=== PATIENT | female | born 1935 | race Caucasian/White ===

== ENCOUNTER → 2018-02-11 | Outpatient (CLI) | payer OTHER, MEDICARE ==
[~2018-02-11] VITALS: Ht 154.9 cm; Wt 65.8 kg
[~2018-02-11] MED LIST: ALLOPURINOL 10100 M1 PO; ARANESP10 MCG/0.4 IJ; COZAAR 50 MG TA50 M2 PO; CYMBALTA30 MG PO; FOSAMAX 70 MG T70 MG PO; GABAPENTIN 100100 MG PO; GLUCOSAMINE-CH1 EA36 PO; HYDROCODON-ACE1 EAC7 PO; LISINOPRIL-HCT1 EACH PO; MAGOX 400400 MG PO; METFORMIN HCL500 MG PO; OCUVITE TABLET1 EAC1 PO; PERCOCET 5-3251 EACH PO; SLOW FE 160MG160 MG PO; TRAMADOL 50 MG50 MG PO; VITAMIN B-121000 MC1 PO; VITAMIN D5000 UNIT PO
--- NOTE | ~2018-02-11 | HPC ---
[facility] [place] [address] PAIN MANAGEMENT CONSULTATION Name: YAA WATKINS Theo Room #: REG FILIPE Amandeep.#: [id number] Admission: 02/11/18 Attend Phys: Larry Borjas DO Discharge: Date of : 37 Report #: [id number] THIS REPORT FOR: //name// CC: HALEY Borjas Physician staff Lev Corado MD DATE OF SERVICE: 02/11/2018 REFERRING PHYSICIAN: Haley Amado MD CHIEF COMPLAINT: Low back pain, left lower extremity pain and paresthesias. HISTORY OF PRESENT ILLNESS: As you know, the patient is an 82-year-old female who has been followed by [facility] for some time for lumbar radicular symptoms. The patient was last seen in our clinic on 09/21/2015 where she underwent an L4-L5 left paramedian epidural steroid injection under fluoroscopic guidance with good efficacy. She returns today stating pain is sharp and constant and places current pain score 5-6/10, states pain is exacerbated with walking stairs, sitting, improves with cold compresses and previous epidural injection. The patient reports 80-90% improvement in overall pain with previous injection. She returns requesting the next in the series of epidural injections in hopes of improving pain. She indicates no major changes in medical history since her last visit. ALLERGIES: ERYTHROMYCIN AND STATIN MEDICATIONS. CURRENT MEDICATIONS: Magnesium oxide, Aranesp, vitamin A, C, E and Lutein, cholecalciferol, losartan, hydrocodone and metformin. SOCIAL HISTORY: The patient denies tobacco, alcohol, IV or illicit drug use. She continues to work as a nurse. She is working, not receiving workmen's compensation, unaccompanied today. IMAGING: No new imaging available. PQRS: The patient has osteoarthritis of the low back, bilateral hips and knees. She has no history of rheumatoid arthritis. She is not a fall risk, has not had a fall in the last 3 months. She is not on blood thinners. She is treated for hypertension with medication management. She has not been on opioids for longer than 6 months. She is not an opioid abuse risk. Functional assessment tool indicates pain involvement 37/70 moderate. PHYSICAL EXAMINATION: [facility] [address] [place] [address] PAIN MANAGEMENT CONSULTATION Name: YAA WATKINS Room #: REG [facility]#: [id number] Admission: 02/11/18 Attend Phys: Larry Borjas DO Discharge: Date of : 37 Report #: [id number] VITAL SIGNS: Blood pressure 143/71, pulse 80, respiratory rate 20 and unlabored. The patient is 100% on room air. Height 5 feet 1 inch tall, weight 145 pounds, BMI calculated 27.4. GENERAL: Well-developed, well-nourished, well-hydrated 82-year-old female appearing her stated age placing current pain score at 5-6/10. HEENT: Normocephalic and atraumatic. Pupils are equal, round and reactive to light. Extraocular muscles are intact. Sclerae are nonicteric without injection. NEUROLOGIC: Cranial nerves 2 through 12 are grossly intact. Speech is fluent. The patient deemed a good historian. LUNGS: Clear, no wheeze, rhonchi or rales. CARDIOVASCULAR: Regular. No appreciable gallop, no rub. ABDOMEN: Soft, nontender, nondistended, normal active bowel sounds. EXTREMITIES: Show no clubbing, no cyanosis and no edema. MUSCULOSKELETAL: Lower extremity strength appears equal and symmetrical 5/5. She is intact to light touch from L1 through S2 dermatomes. Seated straight leg raising is negative. Supine straight leg raising is positive on the left. Rut's test negative. Modified Gaenslen's positive for axial low back pain. Ankle clonus is negative. Babinski is negative. ASSESSMENT: 1. Lumbar radiculopathy. 2. Displacement of lumbar intervertebral disk with radiculopathy. 3. Lumbosacral spondylosis with radiculopathy. 4. Lumbar degeneration. PLAN: 1. The patient has returned today in followup visit requesting to undergo epidural injection under fluoroscopic guidance. She has done very well with previous epidural injection with good and prolonged efficacy. The patient was last seen in clinic 09/21/2015 where she underwent epidural injection with Dr. Corado. Due to scheduling conflicts, the patient was unable to see Dr. Corado today. She was placed on my schedule to provide the requested epidural injection. I have advised the patient of the risks and benefits of this procedure. These risks include but are not necessarily limited to bleeding, bruising, infection, worsening pain, no relief of pain, also risk of temporary or permanent muscle weakness, temporary or permanent nerve damage, possible paralysis and . The patient states understood and wished to proceed. 2. No medication changes made at today's visit. The patient to continue current medical therapy as previously prescribed. 3. We will see the patient back in followup visit on an as needed basis for next in the series of epidural injections. PROCEDURE NOTE DESCRIPTION OF PROCEDURE: L4-L5 left paramedian epidural steroid injection [address] [address] PAIN MANAGEMENT CONSULTATION Name: YAA WATKINS Room #: REG FILIPE Lester#: [id number] Admission: 02/11/18 Attend Phys: Larry Borjas DO Discharge: Date of : 37 Report #: [id number] under fluoroscopic guidance. After obtaining written consent, the patient was taken back to fluoroscopy suite, placed in prone position with pillow under abdomen to decrease lumbar lordosis. Skin overlying lumbosacral area then prepped and draped in aseptic fashion. The L4-L5 vertebral interspace identified by AP fluoroscopy. Skin and subcutaneous tissue overlying target site of injection was anesthetized with 3 mL of 1% lidocaine. A 20-gauge 3-1/2 inch Tuohy needle advanced under fluoroscopic guidance towards the epidural space using left paramedian approach. Epidural space identified using loss of resistance to air technique. After negative aspiration for heme or cerebrospinal fluid, 1 mL of Omnipaque was injected. A lumbar epidurogram was confirmed using both AP and lateral fluoroscopy. After negative aspiration for heme or cerebrospinal fluid, 5 mL of solution containing 2 mL 40 mg per mL, 80 mg total triamcinolone, 3 mL lidocaine 1% injected slowly. Needle retracted nursing home, flushed with 1 mL of 1% lidocaine and removed. Sterile bandage placed over injection site. No new motor deficits present in the lower extremity following procedure. The patient tolerated the procedure well, carefully escorted to recovery room in stable condition. No apparent complication. After meeting discharge criteria, the patient discharged home. <ELECTRONICALLY SIGNED> By: Larry Borjas DO 02/12/18 0853 [id number] [id number] Larry Borjas DO /pascual
[2018-02-11 10:07] VITALS: BP 143/71
== END | disposition home or self-care (01) ==
LOC: PAIN 07:51
DX: M51.16 Intervertebral disc disorders with radiculopathy, lumbar region (principal); M47.27 Other spondylosis with radiculopathy, lumbosacral region; M19.90 Unspecified osteoarthritis, unspecified site; M16.0 Bilateral primary osteoarthritis of hip; M17.0 Bilateral primary osteoarthritis of knee; I10 Essential (primary) hypertension; Z88.8 Allergy status to other drugs, medicaments and biological substances; Z79.899 Other long term (current) drug therapy; Z79.84 Long term (current) use of oral hypoglycemic drugs

== ENCOUNTER → 2019-03-17 | Outpatient (CLI) | payer OTHER ==
[~2019-03-17] VITALS: Ht 154.9 cm; Wt 62.6 kg
[~2019-03-17] MED LIST changes: +OSTEO BI-FLEX1 EAC1 PO; +TYLENOL EXTRA500 MG PO
[2019-03-17 08:44] VITALS: BP 159/66
--- NOTE | 2019-03-17 09:02 | NUR ---
Pain Clinic Assessment: 1. History of Osteoarthritis: BACK NECK History of Rheumatoid Arthritis: Not Applicable 2. Height: 5 ft. 1 in. 154.9 cm. Weight: 138.0 lb. oz. 62.596 kg. Patient's BMI: 26.1 3. Vital Signs: BP: 159/66 Pulse: 75 Resp: 16 Temp: 02 Sat: 100 ECG Mon: 4. Pain Intensity: 4 5. Fall Risk: Dizziness: N Needs help standing or walking: N Fallen in the last 3 months: N Fall risk comments: 6. Patient on Blood Thinner: None 7. History of Hypertension: Y 8. Opioid Therapy greater than 6 weeks: N Opiate Contract Signed: 9. Risk Assessment Tool Provided: LOW RISK 0/3 10. Functional Assessment Tool: 11. Recreational Drug Use: Never Drug Type: Tobacco Use: Never Smoker Tobacco Type: Amount or Packs/day: How Many Years: Alcohol Use: No Frequency: Quant:
--- NOTE | 2019-03-18 08:14 | HPC ---
[facility] [address] [address] PAIN MANAGEMENT CONSULTATION Name: ROLANDYAA Theo Room #: REG FILIPE Trevon#: [id number] Admission: 03/17/19 Attend Phys: Larry Borjas DO Discharge: Date of : 37 Report #: [id number] THIS REPORT FOR: //name// CC: HALEY Borjas Physician staff DATE OF SERVICE: 03/17/2019 REFERRING PHYSICIAN: Haley Amado M.D. CHIEF COMPLAINT: Neck pain, right upper extremity pain with paresthesias. HISTORY OF PRESENT ILLNESS: As you know, the patient is an 84-year-old female who reports acute onset of neck pain and right upper extremity pain that began early 2018. She describes this pain as aching, numbness and tingling. Places current pain score 4/10. Positioning and turning her head exacerbates symptoms. Massage, heat and cold compresses tend to improve pain. She sought evaluation for ongoing pain issues and ultimately underwent an MRI of the cervical spine on 01/28/2019, which showed facet arthropathy at C3-C4 with no central canal or neuroforaminal stenosis. There was mild degenerative disk disease, moderate facet arthropathy on the right, moderate facet arthropathy on the left at C4-C5 level. No significant central canal stenosis. There is moderate left C5 neuroforaminal narrowing. At C5-C6, there is severe degenerative disk disease, mild facet arthropathy, worse on the left, mild broad-based disk bulge, moderate narrowing of the left lateral recess, severe left and mild right C6 neuroforaminal narrowing. C6-C7, mild degenerative changes, no central canal neuroforaminal stenosis. C7-T1 normal. These findings led to the patient being referred back to our clinic to discuss the possibility of undergoing a cervical epidural injection. She denies injury or trauma. ALLERGIES: ERYTHROMYCIN AND STATIN. CURRENT MEDICATIONS: Magnesium oxide, Aranesp, vitamin A, C and D, cholecalciferol, losartan, hydrocodone, metformin. SOCIAL HISTORY: The patient denies tobacco, IV or illicit drug use. She is working, not receiving workmen's compensation, unaccompanied today. IMAGING: No new imaging available. PQRS: The patient has osteoarthritic changes of the neck and lumbar spine. No rheumatoid arthritis. She is placing pain intensity at 4/10. She is not a fall risk, has not had a fall in the last 3 months. She is not on blood thinners. She is treated for hypertension. She is not on chronic [place] [address] PAIN MANAGEMENT CONSULTATION Name: YAA WATKINS Room #: REG CLLaura Lester#: [id number] Admission: 03/17/19 Attend Phys: Larry Borjas DO Discharge: Date of : 37 Report #: [id number] low opiate addiction potential. Pain impact score 6/70, indicating mild interference in daily activity secondary to pain. PHYSICAL EXAMINATION: VITAL SIGNS: Blood pressure 159/66, pulse 75, respiratory rate 16 and unlabored. The patient is 100% on room air. Height 5 feet 1 inch tall, weight 138 pounds, BMI calculated 26.1. GENERAL: Well-developed, well-nourished, well-hydrated 84-year-old female, appearing stated age, placing current pain score 4/10. HEENT: Normocephalic, atraumatic. Pupils equal, round, reactive to light. Extraocular muscles are intact. Sclerae nonicteric without injection. NEUROLOGIC: Cranial nerves 2-12 grossly intact. Speech is fluent. EXTREMITIES: Show no clubbing, no cyanosis, and no edema. MUSCULOSKELETAL: Upper extremity strength appears symmetrical, 5/5. Slight giveaway strength noted with biceps flexion on the left when compared to the right. This is due to shoulder pain. Muscle bulk and tone appears equal and symmetrical in the upper extremities. Spurling's test is equivocal. Cervical provocation testing is met with increasing pain. ASSESSMENT: 1. Cervical radiculopathy. 2. Displacement of cervical intervertebral disk with radiculopathy. 3. Cervical spondylosis with radiculopathy. 4. Intractable pain. PLAN: 1. The patient has been referred back to our service after a long time from our last visit, which was September 2015 where the patient underwent a lumbar epidural injection. She has been referred back to our service to discuss treatment options for suspected cervical radiculopathy. I have advised the patient to the findings of the cervical imaging. The patient is reporting some left involvement, but also some right involvement. It does appear that she has enough changes in the cervical spine and treatment for cervical radiculopathy could be considered. We discussed the findings of the MRI and how they correlate to the patient's symptoms at this juncture. After discussion of the findings, we then discussed treatment options, following was discussed. We discussed physical therapy, stretching exercise, core strengthening and traction techniques. We discussed medication management, adding neuropathic pain medication. We discussed cervical epidural injections, for which the patient was referred back to our clinic. Also, discussed surgical options. After reviewing risks and benefits of all proposed treatment options, the patient chose to begin with a cervical epidural injection. 2. The patient has requested that we delay the injection until tomorrow, 03/18/2019, as she has to work this evening and wishes to take the 24 hours after the injection off, so that she can heal from the procedure and see further improvement in pain. The patient will be established tomorrow's [address] [place] [address] PAIN MANAGEMENT CONSULTATION Name: YAA WATKINS Room #: REG FILIPE Lester#: [id number] Admission: 03/17/19 Attend Phys: Larry Borjas DO Discharge: Date of : 37 Report #: [id number] appointment for this injection. 3. No medication changes made at today's visit. The patient will continue current medical therapy as previously prescribed. 4. We will see the patient back in followup visit tomorrow for cervical epidural injection under fluoroscopic guidance to address cervical radiculopathy. <ELECTRONICALLY SIGNED> By: Larry Borjas DO 03/18/19 0814 [id number] 0231 Larry Borjas DO /nt
== END ==
LOC: PAIN 06:43
DX: M47.22 Other spondylosis with radiculopathy, cervical region (principal); M50.10 Cervical disc disorder with radiculopathy, unspecified cervical region; G89.4 Chronic pain syndrome; Z88.8 Allergy status to other drugs, medicaments and biological substances; Z88.0 Allergy status to penicillin; Z79.84 Long term (current) use of oral hypoglycemic drugs; Z79.899 Other long term (current) drug therapy

== ENCOUNTER → 2019-03-18 | Outpatient (CLI) | payer OTHER ==
[~2019-03-18] VITALS: Ht 154.9 cm; Wt 62.6 kg
[2019-03-18 11:01] VITALS: BP 128/60
--- NOTE | 2019-03-18 11:05 | NUR ---
Pain Clinic Assessment: 1. History of Osteoarthritis: BACK NECK History of Rheumatoid Arthritis: Not Applicable 2. Height: 5 ft. 1 in. 154.9 cm. Weight: 138.0 lb. oz. 62.596 kg. Patient's BMI: 26.1 3. Vital Signs: BP: 128/60 Pulse: 77 Resp: 16 Temp: 02 Sat: 100 ECG Mon: 4. Pain Intensity: 4 5. Fall Risk: Dizziness: N Needs help standing or walking: N Fallen in the last 3 months: N Fall risk comments: 6. Patient on Blood Thinner: None 7. History of Hypertension: Y 8. Opioid Therapy greater than 6 weeks: N Opiate Contract Signed: 9. Risk Assessment Tool Provided: LOW RISK 0/3 10. Functional Assessment Tool: 11. Recreational Drug Use: Never Drug Type: Tobacco Use: Never Smoker Tobacco Type: Amount or Packs/day: How Many Years: Alcohol Use: No Frequency: Quant:
--- NOTE | 2019-03-24 09:09 | HPC ---
[facility] [address] [place] [address] PAIN MANAGEMENT CONSULTATION Name: ROLANDYAA Theo Room #: REG FILIPE Elba#: [id number] Admission: 03/18/19 Attend Phys: Larry Borjas DO Discharge: Date of : 37 Report #: [id number] THIS REPORT FOR: //name// CC: HALEY Borjas Physician staff DATE OF SERVICE: 03/18/2019 CHIEF COMPLAINT: Neck pain, right upper extremity pain and paresthesias. HISTORY OF PRESENT ILLNESS: As you know, the patient is an 84-year-old female who reports acute onset of neck pain, right upper extremity pain. The pain began early 2018. Describes pain as aching, numbness and tingling. The patient was seen in consultation on 03/17/2019, diagnosed with cervical radiculopathy secondary to the displacement of cervical intervertebral disk and facet arthropathy causing neural foraminal stenosis. The patient and I discussed treatment options at the visit yesterday. She chose to undergo cervical epidural injection. Unfortunately, timing for that injection was not going to be possible yesterday. She returns today to undergo the procedure as she has "cleared her calendar." She returns today to undergo the first in a series of cervical epidural injections to address cervical radiculopathy that started spontaneously. ALLERGIES: ERYTHROMYCIN and STATINS. CURRENT MEDICATIONS: Magnesium oxide, Aranesp, vitamin A, vitamin C, vitamin D, cholecalciferol, losartan, hydrocodone, metformin. SOCIAL HISTORY: The patient denies tobacco, IV or illicit drug use. She is working, not receiving workmen's compensation, unaccompanied today. IMAGING: No new imaging available. PQRS: The patient has known arthritic changes of the neck and lumbar spine. No rheumatoid arthritis. She is placing pain today at a level of 4/10. She is not a fall risk, has not had a fall in last 3 months. She is not on blood thinners, but is treated for hypertension. She is on opioids and has a low opioid addiction potential. She is placing pain impact score at 6/70, mild interference of daily activities secondary to pain. PHYSICAL EXAMINATION: VITAL SIGNS: Blood pressure 128/60, pulse 77, respiratory rate 16 and unlabored. The patient is 100% on room air. Height 5 feet 1 inch tall, weight 138 pounds, BMI calculated 26.1. [facility] [address] [place] [address] PAIN MANAGEMENT CONSULTATION Name: YAA WATKINS Room #: REG FILIPE Trevon#: [id number] Admission: 03/18/19 Attend Phys: Larry Borjas DO Discharge: Date of : 37 Report #: [id number] GENERAL: Well-developed, well-nourished, well-hydrated 84-year-old female appearing stated age, pain is rated today at around 4/10. HEENT: Normocephalic, atraumatic. Pupils equal, round, reactive to light. EXTREMITIES: Show no clubbing, no cyanosis, and no edema. MUSCULOSKELETAL: Upper extremity strength remains symmetrical again today 5/5. Slight giveaway strength noted with biceps flexion on the left when compared to the right. This is mainly due to shoulder discomfort. There is crepitus with movement of the shoulder on the left with reduction in range of motion both in active and passive manipulation. Muscle bulk and tone appears equal and symmetrical in the upper extremities. Spurling's test is equivocal. ASSESSMENT: 1. Cervical radiculopathy. 2. Displacement of cervical intervertebral disk with radiculopathy. 3. Cervical spondylosis with radiculopathy. 4. Chronic intractable pain. PLAN: 1. The patient has returned today in followup visit prepared to undergo cervical epidural injection under fluoroscopic guidance. The patient has been advised of the risks and the benefits of a cervical epidural injection. These risks include but are not necessarily limited to bleeding, bruising, infection, worsening pain, no relief of pain, also risk of temporary or permanent muscle weakness, temporary or permanent nerve damage, possible paralysis, post-dural puncture headache and . The patient states understood and wished to proceed. 2. No medication changes made at today's visit. The patient will continue current medical therapy as previously prescribed. 3. We will see the patient back in followup visit on an as needed basis for possible next in the series of cervical epidural injections. PROCEDURE NOTE: DESCRIPTION OF PROCEDURE: C7-T1 cervical epidural steroid injection under fluoroscopic guidance. This is the 1st procedure of the 1st series that the patient is undergoing. After obtaining written consent, the patient was taken back to the fluoroscopy suite and placed in a prone position with pillows under chest to decrease cervical lordosis. The skin overlying the cervical area was prepped and draped in an aseptic fashion. The C7-T1 vertebral interspace was identified by AP fluoroscopy. The skin and subcutaneous tissue overlying the target site of injection was anesthetized using 3 mL of 1% lidocaine. A 20-gauge, 3.5 inch Tuohy needle was advanced under fluoroscopic guidance [address] [address] PAIN MANAGEMENT CONSULTATION Name: YAA WATKINS Room #: REG FILIPE Lester#: [id number] Admission: 03/18/19 Attend Phys: Larry Borjas DO Discharge: Date of : 37 Report #: [id number] toward the epidural space using a midline approach. The epidural space was identified using a loss of resistance to air technique. After negative aspiration for heme or cerebrospinal fluid, a total of 0.5 mL of Omnipaque was injected. A cervical epidurogram was confirmed using AP and oblique fluoroscopy. After negative aspiration for heme or cerebrospinal fluid, 5 mL of a solution containing 2 mL, 40 mg/mL, 80 mg triamcinolone along with 3 mL of lidocaine 1% was injected in increments. Contrast spread was noted from posterior epidural space. The needle was then retracted approximately senior care and the needle track was flushed with 1 mL of 1% lidocaine. There were no new sensory deficits in the upper extremities present following the procedure. A sterile bandage was placed over the injection site. The heart rate, pulse oximetry and blood pressure were continuously monitored after the procedure. There were no apparent complications. The patient tolerated the procedure well and was carefully escorted in the recovery room in stable condition. After meeting discharge criteria, the patient was discharged home. <ELECTRONICALLY SIGNED> By: Larry Borjas DO 03/24/19 0909 [id number] Larry Borjas DO /nt
== END | disposition home or self-care (01) ==
LOC: PAIN 06:58
DX: M50.13 Cervical disc disorder with radiculopathy, cervicothoracic region (principal); M47.22 Other spondylosis with radiculopathy, cervical region; G89.29 Other chronic pain; I10 Essential (primary) hypertension; Z88.8 Allergy status to other drugs, medicaments and biological substances; Z79.899 Other long term (current) drug therapy

== ENCOUNTER → 2019-05-20 | Outpatient (CLI) | payer OTHER ==
[~2019-05-20] VITALS: Ht 154.9 cm; Wt 67.1 kg
[~2019-05-20] MED LIST changes: +MEDROLDOSEPACK PO; +MELOXICAM7.5 MG PO
[2019-05-20 09:31] VITALS: BP 144/64
--- NOTE | 2019-05-20 09:55 | NUR ---
Pain Clinic Assessment: 1. History of Osteoarthritis: BACK NECK History of Rheumatoid Arthritis: Not Applicable 2. Height: 5 ft. 1 in. 154.9 cm. Weight: 148.0 lb. oz. 67.132 kg. Patient's BMI: 28.0 3. Vital Signs: BP: 144/64 Pulse: 73 Resp: 16 Temp: 02 Sat: 100 ECG Mon: 4. Pain Intensity: 2-4 AVG 5. Fall Risk: Dizziness: N Needs help standing or walking: N Fallen in the last 3 months: N Fall risk comments: 6. Patient on Blood Thinner: None 7. History of Hypertension: Y 8. Opioid Therapy greater than 6 weeks: N Opiate Contract Signed: 9. Risk Assessment Tool Provided: LOW RISK 0/3 10. Functional Assessment Tool: 11. Recreational Drug Use: Never Drug Type: Tobacco Use: Never Smoker Tobacco Type: Amount or Packs/day: How Many Years: Alcohol Use: No Frequency: Quant:
--- NOTE | 2019-05-26 08:01 | HPC ---
[facility] [place] [address] PAIN MANAGEMENT CONSULTATION Name: YAA WATKINS Theo Room #: REG FILIPE HernadezAmandeepAlyssia.#: [id number] Admission: 05/20/19 Attend Phys: Larry Borjas DO Discharge: Date of : 39 Report #: [id number] THIS REPORT FOR: //name// CC: HALEY Borjas Physician staff DATE OF SERVICE: 05/20/2019 REFERRING PHYSICIAN: Dr. Haley Amado. CHIEF COMPLAINT: Neck pain, right upper extremity pain and paresthesias. HISTORY OF PRESENT ILLNESS: As you know, patient is an 84-year-old female reporting a longstanding neck pain and right upper extremity pain with paresthesias. The patient pain began in early 2018. Describes the pain as aching, numbness, and tingling. She returns today in followup visit requesting a refill of medications and to adjust a therapy. She has had an acute exacerbation of symptoms, for which, she is now placing a pain score at 2-4/10. She returns for refill of her Mobic that she takes for her baseline pain control as well as to discuss potential interventional treatment options, though she does not wish to undergo an injection today. ALLERGIES: ERYTHROMYCIN and STATINS. CURRENT MEDICATIONS: Metformin, hydrocodone, cholecalciferol, vitamin C, Aranesp, magnesium oxide, glucosamine chondroitin, acetaminophen, and gabapentin. SOCIAL HISTORY: The patient denies tobacco, IV, or illicit drug use. She is not working, not receiving workmen's compensation, unaccompanied today. IMAGING: No new imaging available. 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 No rheumatoid arthritis. She is placing a pain intensity today anywhere from 2-4/10, not a fall risk, not had a fall in last 3 months. She is not on blood thinners. She is treated for hypertension. She is not on chronic opioid. She has a low opioid addiction potential. Pain impact score, 6/70, mild interference of daily activities secondary to pain. PHYSICAL EXAMINATION: VITAL SIGNS: Blood pressure 144/64, pulse is 73, and respiratory rate 16 and unlabored. The patient is 100% on the room air. Height 5 feet 1 inch tall, weight 148 pounds, and BMI calculated 28.0. [address] [address] PAIN MANAGEMENT CONSULTATION Name: YAA WATKINS [id number] Admission: 05/20/19 Attend Phys: Larry Borjas DO Discharge: Date of : 39 Report #: [id number] GENERAL: Well-developed, well-nourished, and well-hydrated 84-year-old female appearing stated age, pain is rated anywhere from 2-4/10. HEENT: Normocephalic and atraumatic. Pupils are equal, round, and reactive to light. EXTREMITIES: Show no clubbing, no cyanosis, and no edema. MUSCULOSKELETAL: Upper extremity strength appears symmetrical, 5/5, intact to light touch from C5-T1 dermatomes. There is some palpatory tenderness noted over the paraspinal musculature of the cervical spine. No spinous process tenderness. There is also noted pain elicited with a palpation over the lumbar spine. ASSESSMENT: 1. Cervical radiculopathy. 2. The displacement of cervical intervertebral disk with radiculopathy. 3. Cervical spondylosis with radiculopathy. 4. Axial back pain. PLAN: 1. The patient has returned today in followup visit requesting adjustments in medication to address neck pain and low back pain. It appears the patient is suffering from some acute exacerbation of the symptoms in the lumbar spine. We would recommend a Medrol Dosepak. She was given the Dosepak today and advised how to take the medication. She was given #21 tablets of the 4 mg dose. She will begin this medication as quickly as possible. 2. The patient was provided a prescription of Mobic 7.5 mg 1 tab p.o. q. day, I have given the patient #30 tablets with no refills. The patient was advised to take this medication once she is completed with the Medrol Dosepak. She is not to take them in conjunction with the Medrol Dosepak. 3. We will see the patient back in followup visit on an as needed basis for possible next in the series of injections. She has had her first cervical epidural injection on 03/18/2019 with continued improvement in back pain. The adjustments made today are to address her low back symptoms. <ELECTRONICALLY SIGNED> By: Larry Borjas DO 05/26/19 0801 [id number] Larry Borjas DO /nt
== END ==
LOC: PAIN 04-22 10:00
DX: M47.22 Other spondylosis with radiculopathy, cervical region (principal); M50.10 Cervical disc disorder with radiculopathy, unspecified cervical region; M54.5 Low back pain